=== PATIENT | female | born 1965 | race African-American/Black ===

== ENCOUNTER 2017-03-03 05:43 | Emergency (ER) | payer MEDICAID ==
[~2017-03-03] VITALS: Ht 175.3 cm; Wt 61.4 kg
[2017-03-03] MEDS ORDERED: TEMA7.5C17 PO (06:00)
[2017-03-03] MEDS ORDERED: OXCA300T PO (06:00)
[2017-03-03] MEDS ORDERED: ARIP5TAB8 PO (06:00)
[2017-03-03] MEDS ORDERED: ARIP2 PO (06:00)
[2017-03-03] MEDS ORDERED: PROP10TA73 PO (06:00)
[2017-03-03] MEDS ORDERED: PERTUSS(ACELL),DIPH,TET VAC/PF 0.5 ML VIAL IM ONE (06:30)
[2017-03-03 08:02] VITALS: BP 112/78
== END 2017-03-03 08:49 | disposition home or self-care (01) ==
LOC: EMS 05:45
DX: S00.81XA Abrasion of other part of head, initial encounter (principal); S61.512A Laceration without foreign body of left wrist, initial encounter; J44.9 Chronic obstructive pulmonary disease, unspecified; F17.210 Nicotine dependence, cigarettes, uncomplicated; Z88.5 Allergy status to narcotic agent; Y04.1XXA Assault by human bite, initial encounter; Y93.89 Activity, other specified; Y92.89 Other specified places as the place of occurrence of the external cause; Y99.8 Other external cause status
CPT/HCPCS: 29515; 90471; 90715; 99284